=== PATIENT | female | born 1970 | race Hispanic/Latino ===

== ENCOUNTER 2017-12-18 06:49 | Emergency (ER) | payer OTHER ==
[2017-12-18 07:35] LABS: BASOPHILS % (AUTO) 1.3 % (0.0-5.0); EOSINOPHILS % (AUTO) 4.3 % (0.0-8.0); HEMATOCRIT 39.3 % (36-48); MEAN CORPUSCULAR HEMOGLOBIN 28.7 pg (27.0-33.0); MEAN CORPUSCULAR HGB CONC 33.1 g/dL (32.0-36.0); MEAN CORPUSCULAR VOLUME 86.6 fL (79-99); NEUTROPHILS % (AUTO) 65.4 % (40.0-77.0); PLATELET COUNT (AUTO) 247 K/uL (130-400); RED BLOOD CELL COUNT(AUTO) 4.53 MIL/uL (4.00-5.50); RED CELL DISTRIBUTION WIDTH 14.9 % (11.0-15.5); WHITE BLOOD COUNT (AUTO) 9.3 K/uL (4.8-10.8)
[2017-12-18 07:49] LABS: CARBON DIOXIDE 23 mmol/L (21-32); CHLORIDE 107 mmol/L (101-111); CREATININE 2.3 mg/dL (0.5-1.5); GLOMERULAR FILTR. RATE CALC 24 mL/min (>60); GLUCOSE,RANDOM 153 mg/dL (70-105); POTASSIUM 4.5 mmol/L (3.5-5.1); SODIUM SERUM 138 mmol/L (136-145); UREA NITROGEN, BLOOD 29 mg/dL (7-18)
[2017-12-18 07:56] LABS: INR 5.35 (0.85-1.15); PROTHROMBIN TIME 54.4 SEC (9.6-11.6)
[2017-12-18 08:04] LABS: ALANINE AMINOTRANSFERASE 15 U/L (12-78); ALBUMIN 2.7 g/dL (3.5-5.0); ASPARTATE AMINOTRANSFERASE 1 U/L (10-37); BILIRUBIN,TOTAL 0.3 mg/dL (0.2-1.0); CREATINE KINASE MB < 0.5 ng/mL (0.5-3.6); CREATINE KINASE, TOTAL 61 U/L (21-232); TOTAL PROTEIN, SERUM 6.3 g/dL (6.0-8.3)
[2017-12-18] MEDS ORDERED: PHYTONADIONE 10 MG/1 ML AMP ONE (08:04)
== END 2017-12-18 10:28 | disposition home or self-care (01) ==
LOC: EDH 06:49
DX: K08.89 Other specified disorders of teeth and supporting structures (principal); R79.1 Abnormal coagulation profile; R42 Dizziness and giddiness; E11.9 Type 2 diabetes mellitus without complications; I10 Essential (primary) hypertension; Z90.710 Acquired absence of both cervix and uterus; Z86.718 Personal history of other venous thrombosis and embolism; Z79.01 Long term (current) use of anticoagulants
CPT/HCPCS: 36415; 80053; 82550; 82553; 84484; 85025; 85610; 85730; 93005; 96372; 99285; J3430

== ENCOUNTER → 2019-11-28 | Outpatient (CLI) | payer OTHER | END | disposition home or self-care (01) | LOC: RAH 11:16 | DX: Z12.31 Encounter for screening mammogram for malignant neoplasm of breast (principal); N63.20 Unspecified lump in the left breast, unspecified quadrant | CPT/HCPCS: 77067 ==

== ENCOUNTER → 2019-12-15 | Outpatient (CLI) | payer OTHER | END | disposition home or self-care (01) | LOC: RAH 14:45 | DX: N63.20 Unspecified lump in the left breast, unspecified quadrant (principal); R92.8 Other abnormal and inconclusive findings on diagnostic imaging of breast | CPT/HCPCS: 76641; 77065 ==

== ENCOUNTER 2021-08-18 01:03 | Emergency (ER) | payer OTHER ==
[~2021-08-18] VITALS: Ht 157.5 cm; Wt 98.4 kg
[2021-08-18] MEDS ORDERED: LIDOCAINE HCL 1% 10 ML VIAL ONE (01:41)
[2021-08-18] MEDS ORDERED: CLINDAMYCIN 150 MG CAP PO ONE (02:30)
[2021-08-18] MEDS ORDERED: LIDOCAINE HCL 1% 20 ML VIAL INJ ONE (02:30)
[2021-08-18] MEDS ORDERED: HYDROCODONE/ACETAMINOPHEN 5/325 MG TAB PO ONE (02:30)
[2021-08-18] MEDS ORDERED: CLIN-141 PO (02:58)
[2021-08-18 03:40] VITALS: BP 112/72
== END 2021-08-18 03:46 | disposition home or self-care (01) ==
LOC: EDH 01:03
DX: L02.211 Cutaneous abscess of abdominal wall (principal); E11.9 Type 2 diabetes mellitus without complications; I10 Essential (primary) hypertension; Z86.718 Personal history of other venous thrombosis and embolism; Z79.899 Other long term (current) drug therapy
CPT/HCPCS: 10060; 99283; J3490

== ENCOUNTER 2022-05-19 15:55 | Emergency (ER) | payer OTHER ==
[~2022-05-19] VITALS: Ht 160 cm; Wt 117.9 kg
[~2022-05-19 15:55] MED LIST: CLIN-141 PO
[2022-05-19 16:22] LABS: APPEARANCE,URINE CLEAR (CLEAR); BILIRUBIN,URINE NEGATIVE (NEGATIVE); COLOR,URINE YELLOW (YELLOW); GLUCOSE, URINE (UA) 500 mg/dL (NEGATIVE); KETONES,URINE NEGATIVE (NEGATIVE); LEUKOCYTE ESTERASE ,URINE NEGATIVE (NEGATIVE); NITRATE,URINE NEGATIVE (NEGATIVE); OCCULT BLOOD,URINE TRACE-INTACT (NEGATIVE); PH,URINE 5.5 (5.0-8.0); PROTEIN,URINE NEGATIVE (NEGATIVE); UROBILINOGEN,URINE 0.2 mg/dL (0.2-1.0)
[2022-05-19] MEDS ORDERED: IBUPROFEN 800 MG TAB PO ONE (16:30)
[2022-05-19] MEDS ORDERED: ACETAMINOPHEN 500 MG TABLET PO ONE (16:30)
[2022-05-19] MEDS ORDERED: CLINDAMYCIN IVPB 600MG/50ML 50 ML IV SCH (16:30)
[2022-05-19 16:33] LABS: BACTERIA,URINE Few /HPF (None Seen); RBC,URINE 0-1 /HPF (0-1); SQUAMOUS EPITHELIAL CELL,UR Few /HPF (0-2); WBC,URINE 0-1 /HPF (0-1)
[2022-05-19 16:41] LABS: BASOPHILS % (AUTO) 0.5 % (0.0-5.0); EOSINOPHILS % (AUTO) 2.9 % (0.0-8.0); HEMATOCRIT 28.6 % (36-48); LYMPHOCYTES % (AUTO) 13.5 % (21.0-51.0); MEAN CORPUSCULAR HEMOGLOBIN 28.7 pg (27.0-33.0); MEAN CORPUSCULAR HGB CONC 32.2 g/dL (32.0-36.0); MEAN CORPUSCULAR VOLUME 89.1 fL (79-99); MONOCYTES % (AUTO) 5.5 % (3.0-13.0); PLATELET COUNT (AUTO) 284 K/uL (130-400); RED BLOOD CELL COUNT(AUTO) 3.21 MIL/uL (4.00-5.50); RED CELL DISTRIBUTION WIDTH 14.1 % (11.0-15.5); WHITE BLOOD COUNT (AUTO) 10.2 K/uL (4.8-10.8)
[2022-05-19 16:59] LABS: POTASSIUM 3.6 mmol/L (3.5-5.1)
[2022-05-19 17:04] LABS: ALBUMIN 3.1 g/dL (3.5-5.0); TOTAL PROTEIN, SERUM 6.7 g/dL (6.0-8.3)
[2022-05-19] MEDS ORDERED: CLIN-141 PO (17:54)
[2022-05-19] MEDS ORDERED: MUPI22O TP (17:54)
[2022-05-19 18:30] VITALS: BP 128/70
== END 2022-05-19 18:32 | disposition home or self-care (01) ==
LOC: EDH 15:55
DX: A49.01 Methicillin susceptible Staphylococcus aureus infection, unspecified site (principal); E11.9 Type 2 diabetes mellitus without complications; N28.9 Disorder of kidney and ureter, unspecified; E66.01 Morbid (severe) obesity due to excess calories; Z68.42 Body mass index [BMI] 45.0-49.9, adult; E78.00 Pure hypercholesterolemia, unspecified; I10 Essential (primary) hypertension; Z98.890 Other specified postprocedural states; Z90.49 Acquired absence of other specified parts of digestive tract
CPT/HCPCS: 99284; 96365; 80053; 85025; 87040 ×2; 82948; 83605; 86140; 81001; 36415; J3490

== ENCOUNTER 2023-03-03 08:11 | Inpatient (IN) | payer OTHER ==
[~2023-03-03] VITALS: Ht 160 cm; Wt 123.3 kg
[~2023-03-03 08:11] MED LIST changes: +MUPI22O TP
[2023-03-03 08:47] LABS: HEMATOCRIT 29.3 % (36-48); MEAN CORPUSCULAR HEMOGLOBIN 28.5 pg (27.0-33.0); MEAN CORPUSCULAR VOLUME 94.8 fL (79-99); PLATELET COUNT (AUTO) 327 K/uL (130-400); RED BLOOD CELL COUNT(AUTO) 3.09 MIL/uL (4.00-5.50); RED CELL DISTRIBUTION WIDTH 14.7 % (11.0-15.5); WHITE BLOOD COUNT (AUTO) 9.1 K/uL (4.8-10.8)
[2023-03-03 09:01] LABS: CREATININE 3.7 mg/dL (0.5-1.5); CRP QUANTITATIVE 60.8 mg/L (0.00-9.0); POTASSIUM 4.2 mmol/L (3.5-5.1)
[2023-03-03 09:09] LABS: INR 3.26 (0.85-1.15); PROTHROMBIN TIME 33.2 SEC (9.6-11.6)
[2023-03-03 09:11] LABS: PARTIAL THROMBOPLASTIN TIME 57.2 SEC (26.3-35.5)
[2023-03-03 09:37] LABS: LYMPHOCYTES % (MANUAL) 17 % (22-44); MAN.DIFF COMMENT-IMPRESSION MANUAL DIFFERENTIAL; MONOCYTES % (MANUAL) 8 % (2-9); PLATELET MORPHOLOGY COMMENT ADEQUATE; SEGMENTED NEUTROPHILS % 75 % (40-70)
[2023-03-03] MEDS ORDERED: POTASSIUM CHLORIDE 20MEQ/100ML 100 ML IV PRN (13:00)
[2023-03-03] MEDS ORDERED: GLUCAGON 1MG KIT 1 MG ML IM PRN (13:00)
[2023-03-03] MEDS ORDERED: ONDANSETRON 4MG INJ IVP PRN (13:00)
[2023-03-03] MEDS ORDERED: CEFEPIME HCL 2 GM VIAL IVPB SCH (13:00)
[2023-03-03] MEDS ORDERED: MORPHINE 2 MG SYG IVP PRN (13:00)
[2023-03-03] MEDS ORDERED: MORPHINE 4 MG SYG IVP PRN (13:00)
[2023-03-03] MEDS ORDERED: DEXTROSE 50%-WATER 50 ML DISP.SYRIN IV PRN (13:00)
[2023-03-03] MEDS ORDERED: MAGNESIUM 2GM PREMIX 50ML 50 ML IV PRN (13:00)
[2023-03-03] MEDS ORDERED: POTASSIUM CHLORIDE 10% ELIXIR 20 MEQ/15 ML UDCUP PO PRN (13:00)
[2023-03-03] MEDS: CEFEPIME HCL 1 GM VIAL IVPB SCH (13:22)
[2023-03-03 15:47] LABS: HEMOGLOBIN A1C 6.2 % (4.0-6.0)
[2023-03-03 16:00] VITALS: BP 125/83
[2023-03-03 16:11] LABS: % IRON SATURATION 6.6 % (22-44)
[2023-03-03 16:21] LABS: RETICULOCYTE % (AUTO) 2.07 % (0.42-2.23)
[2023-03-03] MEDS: INSULIN HUMULIN R 100 UNIT/ML 3ML SQ SCH ×2 (16:30→20:17)
[2023-03-03] MEDS ORDERED: METO100T14 PO (18:23)
[2023-03-03] MEDS ORDERED: GLIP5TAB11 PO (18:23)
[2023-03-03] MEDS ORDERED: FURO40TA5 PO (18:23)
[2023-03-03] MEDS ORDERED: WARF3TAB59 PO (18:23)
[2023-03-03] MEDS ORDERED: SODI650T PO (18:23)
[2023-03-03] MEDS ORDERED: ACET-66 PO (18:23)
[2023-03-03] MEDS ORDERED: FLUO20CA36 PO (18:23)
[2023-03-03] MEDS ORDERED: FENO145T26 PO (18:23)
[2023-03-03] MEDS ORDERED: LEVO250T75 PO (18:23)
[2023-03-03] MEDS ORDERED: VITAD50000 PO (18:23)
[2023-03-03 19:56] VITALS: BP 130/61
[2023-03-03] MEDS: ACETAMINOPHEN 325 MG TAB PO PRN (20:11)
[2023-03-03 23:08] VITALS: BP 126/63
[2023-03-04] MEDS: ACETAMINOPHEN 325 MG TAB PO PRN (01:02)
[2023-03-04 04:05] VITALS: BP 113/53
[2023-03-04 05:55] LABS: BASOPHILS % (AUTO) 0.6 % (0.0-5.0); EOSINOPHILS % (AUTO) 5.4 % (0.0-8.0); HEMATOCRIT 27.1 % (36-48); LYMPHOCYTES % (AUTO) 32.5 % (21.0-51.0); MEAN CORPUSCULAR HEMOGLOBIN 28.6 pg (27.0-33.0); MEAN CORPUSCULAR HGB CONC 30.6 g/dL (32.0-36.0); MEAN CORPUSCULAR VOLUME 93.4 fL (79-99); MONOCYTES % (AUTO) 6.7 % (3.0-13.0); NEUTROPHILS % (AUTO) 53.5 % (40.0-77.0); PLATELET COUNT (AUTO) 338 K/uL (130-400); RED CELL DISTRIBUTION WIDTH 14.6 % (11.0-15.5)
[2023-03-04 06:11] LABS: PARTIAL THROMBOPLASTIN TIME 67.8 SEC (26.3-35.5)
[2023-03-04 06:14] LABS: ALBUMIN 2.8 g/dL (3.5-5.0); CREATININE 3.9 mg/dL (0.5-1.5); POTASSIUM 3.6 mmol/L (3.5-5.1); TOTAL PROTEIN, SERUM 6.3 g/dL (6.0-8.3)
[2023-03-04] MEDS: INSULIN HUMULIN R 100 UNIT/ML 3ML SQ SCH ×4 (06:27→20:42)
[2023-03-04 07:23] LABS: INR 3.66 (0.85-1.15); PROTHROMBIN TIME 37.1 SEC (9.6-11.6)
[2023-03-04 07:30] VITALS: BP 133/56
[2023-03-04] MEDS: KCL 20 MEQ ERTAB PO PRN ×2 (10:04→13:52)
[2023-03-04 11:30] VITALS: BP 133/56
[2023-03-04] MEDS: CEFEPIME HCL 1 GM VIAL IVPB SCH (13:03)
[2023-03-04] MEDS: SODIUM BICARBONATE 650 MG TAB PO SCH ×2 (13:52→19:36)
[2023-03-04 15:30] VITALS: BP 130/69
[2023-03-04] MEDS: LINEZOLID 600 MG/ISO-OSM 300 ML IV SCH (17:59)
[2023-03-04] MEDS ORDERED: PHYTONADIONE 10 MG/1 ML AMP SQ SCH (19:00)
[2023-03-04 20:00] VITALS: BP 155/72
[2023-03-05] VITALS: BP 121/61
[2023-03-05] MEDS: LINEZOLID 600 MG/ISO-OSM 300 ML IV SCH ×2 (02:10→15:21)
[2023-03-05 04:00] VITALS: BP 123/58
[2023-03-05] MEDS: INSULIN HUMULIN R 100 UNIT/ML 3ML SQ SCH ×4 (04:54→20:24)
[2023-03-05 05:54] LABS: HEMATOCRIT 26.5 % (36-48); MEAN CORPUSCULAR HEMOGLOBIN 28.5 pg (27.0-33.0); MEAN CORPUSCULAR HGB CONC 30.6 g/dL (32.0-36.0); MEAN CORPUSCULAR VOLUME 93.3 fL (79-99); RED BLOOD CELL COUNT(AUTO) 2.84 MIL/uL (4.00-5.50); RED CELL DISTRIBUTION WIDTH 14.1 % (11.0-15.5); WHITE BLOOD COUNT (AUTO) 6.9 K/uL (4.8-10.8)
[2023-03-05 06:10] LABS: INR 2.77 (0.85-1.15); PROTHROMBIN TIME 28.5 SEC (9.6-11.6)
[2023-03-05 06:12] LABS: PARTIAL THROMBOPLASTIN TIME 58.8 SEC (26.3-35.5)
[2023-03-05 06:28] LABS: ALBUMIN 2.6 g/dL (3.5-5.0); CREATININE 3.8 mg/dL (0.5-1.5); MAGNESIUM 2.1 mg/dL (1.80-2.40); POTASSIUM 3.9 mmol/L (3.5-5.1); TOTAL PROTEIN, SERUM 6.1 g/dL (6.0-8.3)
[2023-03-05 07:30] VITALS: BP 133/65
[2023-03-05] MEDS: FLUOXETINE HCL 20 MG CAPSULE PO SCH (08:16)
[2023-03-05] MEDS: FENOFIBRATE NANOCRYSTALLIZED 145 MG TAB PO SCH (08:16)
[2023-03-05] MEDS: FUROSEMIDE 40 MG TABLET PO SCH (08:16)
[2023-03-05] MEDS: METOPROLOL TARTRATE 50 MG TAB PO SCH (08:16)
[2023-03-05] MEDS: SODIUM BICARBONATE 650 MG TAB PO SCH ×3 (08:16→20:23)
[2023-03-05] MEDS: PHYTONADIONE 10 MG/1 ML AMP SQ SCH (08:17)
[2023-03-05] MEDS: CEFEPIME HCL 1 GM VIAL IVPB SCH (15:21)
[2023-03-05 15:30] VITALS: BP 126/60
[2023-03-05 20:00] VITALS: BP 143/87
[2023-03-06] VITALS (27 sets, daily range): BP systolic 103–139; BP diastolic 53–78
[2023-03-06] MEDS: LINEZOLID 600 MG/ISO-OSM 300 ML IV SCH ×2 (02:54→15:24)
[2023-03-06] MEDS: INSULIN HUMULIN R 100 UNIT/ML 3ML SQ SCH ×4 (05:07→20:19)
[2023-03-06 05:53] LABS: HEMATOCRIT 27.5 % (36-48); MEAN CORPUSCULAR HGB CONC 30.5 g/dL (32.0-36.0); MEAN CORPUSCULAR VOLUME 91.7 fL (79-99); RED CELL DISTRIBUTION WIDTH 13.9 % (11.0-15.5); WHITE BLOOD COUNT (AUTO) 7.2 K/uL (4.8-10.8)
[2023-03-06 06:04] LABS: INR 1.57 (0.85-1.15); PROTHROMBIN TIME 16.7 SEC (9.6-11.6)
[2023-03-06 06:05] LABS: ALBUMIN 2.9 g/dL (3.5-5.0); CREATININE 3.7 mg/dL (0.5-1.5); MAGNESIUM 1.8 mg/dL (1.80-2.40); POTASSIUM 3.5 mmol/L (3.5-5.1); TOTAL PROTEIN, SERUM 6.3 g/dL (6.0-8.3)
[2023-03-06 06:06] LABS: PARTIAL THROMBOPLASTIN TIME 40.1 SEC (26.3-35.5)
[2023-03-06] MEDS ORDERED: LIDOCAINE PF 100MG/5ML (2%) SYRINGE 5ML ONE (10:24)
[2023-03-06] MEDS ORDERED: DEXAMETHASONE SOD PHOSPHATE 4 MG/ML 1ML VIAL ONE (10:24)
[2023-03-06] MEDS ORDERED: MIDAZOLAM HCL 1 MG/ML 2ML VIAL ONE (10:24)
[2023-03-06] MEDS ORDERED: PROPOFOL 10 MG/ML 20ML VIAL IV ONE (10:25)
[2023-03-06] MEDS ORDERED: ONDANSETRON 4MG INJ ONE (10:25)
[2023-03-06] MEDS ORDERED: FENTANYL CITRATE PF 50 MCG/1 ML 2ML VIAL ONE (10:25)
[2023-03-06] MEDS ORDERED: LIDOCAINE 1%-EPI 1:100,000 20 ML VIAL IJ ONE ×2 (10:31→10:42)
[2023-03-06] MEDS ORDERED: BUPIVACAINE/PF 0.25% 30ML VIAL IJ ONE ×2 (10:31→10:44)
[2023-03-06] MEDS ORDERED: CEFAZOLIN SODIUM 2 GM VIAL IVPB ONE (10:59)
[2023-03-06] MEDS ORDERED: CEFAZOLIN SODIUM 1 GM VIAL ONE (11:07)
[2023-03-06] MEDS ORDERED: MEPERIDINE-PF 25 MG/ML SYG ONE ×2 (11:39→11:48)
[2023-03-06] MEDS: FENOFIBRATE NANOCRYSTALLIZED 145 MG TAB PO SCH (13:52)
[2023-03-06] MEDS: PHYTONADIONE 10 MG/1 ML AMP SQ SCH (13:52)
[2023-03-06] MEDS: FLUOXETINE HCL 20 MG CAPSULE PO SCH (13:52)
[2023-03-06] MEDS: CEFEPIME HCL 1 GM VIAL IVPB SCH (13:52)
[2023-03-06] MEDS: KCL 20 MEQ ERTAB PO PRN ×2 (13:53→20:48)
[2023-03-06] MEDS: FUROSEMIDE 40 MG TABLET PO SCH (13:53)
[2023-03-06] MEDS: SODIUM BICARBONATE 650 MG TAB PO SCH ×3 (13:53→20:12)
[2023-03-06] MEDS: METOPROLOL TARTRATE 50 MG TAB PO SCH (13:54)
[2023-03-07] MEDS: LINEZOLID 600 MG/ISO-OSM 300 ML IV SCH ×2 (02:45→14:41)
[2023-03-07 03:54] VITALS: BP 96/50
[2023-03-07 04:20] LABS: HEMATOCRIT 27.2 % (36-48); MEAN CORPUSCULAR HEMOGLOBIN 28.3 pg (27.0-33.0); MEAN CORPUSCULAR HGB CONC 31.3 g/dL (32.0-36.0); MEAN CORPUSCULAR VOLUME 90.7 fL (79-99); RED CELL DISTRIBUTION WIDTH 13.7 % (11.0-15.5); WHITE BLOOD COUNT (AUTO) 9.3 K/uL (4.8-10.8)
[2023-03-07 04:36] LABS: INR 1.21 (0.85-1.15)
[2023-03-07 04:37] LABS: PARTIAL THROMBOPLASTIN TIME 31.7 SEC (26.3-35.5)
[2023-03-07 04:41] LABS: BILIRUBIN,DIRECT 0.2 mg/dL (0.0-0.3); CREATININE 3.8 mg/dL (0.5-1.5); MAGNESIUM 2.2 mg/dL (1.80-2.40); POTASSIUM 4.2 mmol/L (3.5-5.1); TOTAL PROTEIN, SERUM 6.5 g/dL (6.0-8.3)
[2023-03-07] MEDS: INSULIN HUMULIN R 100 UNIT/ML 3ML SQ SCH ×4 (06:28→20:08)
[2023-03-07 07:30] VITALS: BP 113/61
[2023-03-07] MEDS: FLUOXETINE HCL 20 MG CAPSULE PO SCH (08:11)
[2023-03-07] MEDS: FENOFIBRATE NANOCRYSTALLIZED 145 MG TAB PO SCH (08:11)
[2023-03-07] MEDS: SODIUM BICARBONATE 650 MG TAB PO SCH ×3 (08:11→20:04)
[2023-03-07] MEDS: METOPROLOL TARTRATE 50 MG TAB PO SCH (08:11)
[2023-03-07] MEDS: PHYTONADIONE 10 MG/1 ML AMP SQ SCH (08:11)
[2023-03-07] MEDS: FUROSEMIDE 40 MG TABLET PO SCH (08:11)
[2023-03-07 11:30] VITALS: BP 118/57
[2023-03-07] MEDS: CEFEPIME HCL 1 GM VIAL IVPB SCH (12:49)
[2023-03-07] MEDS: OXYCODONE/ACETAMIN 5/325MG TAB PO PRN (12:49)
[2023-03-07 15:30] VITALS: BP 155/44
[2023-03-07 20:07] VITALS: BP 114/54
[2023-03-07 23:36] VITALS: BP 120/48
[2023-03-08] MEDS: LINEZOLID 600 MG/ISO-OSM 300 ML IV SCH ×2 (01:34→14:19)
[2023-03-08 03:38] VITALS: BP 119/54
[2023-03-08 05:34] LABS: BASOPHILS % (AUTO) 0.8 % (0.0-5.0); HEMATOCRIT 26.5 % (36-48); LYMPHOCYTES % (AUTO) 40.1 % (21.0-51.0); MEAN CORPUSCULAR HEMOGLOBIN 28.8 pg (27.0-33.0); MEAN CORPUSCULAR HGB CONC 31.3 g/dL (32.0-36.0); MONOCYTES % (AUTO) 7.4 % (3.0-13.0); NEUTROPHILS % (AUTO) 46.3 % (40.0-77.0); PLATELET COUNT (AUTO) 336 K/uL (130-400); RED BLOOD CELL COUNT(AUTO) 2.88 MIL/uL (4.00-5.50); RED CELL DISTRIBUTION WIDTH 13.9 % (11.0-15.5); WHITE BLOOD COUNT (AUTO) 7.8 K/uL (4.8-10.8)
[2023-03-08] MEDS: INSULIN HUMULIN R 100 UNIT/ML 3ML SQ SCH ×4 (05:48→19:45)
[2023-03-08 05:58] LABS: CREATININE 4.3 mg/dL (0.5-1.5); POTASSIUM 3.8 mmol/L (3.5-5.1)
[2023-03-08 06:17] LABS: INR 1.13 (0.85-1.15); PROTHROMBIN TIME 12.2 SEC (9.6-11.6)
[2023-03-08 06:18] LABS: PARTIAL THROMBOPLASTIN TIME 28.3 SEC (26.3-35.5)
[2023-03-08 08:00] VITALS: BP 105/52
[2023-03-08] MEDS: PHYTONADIONE 10 MG/1 ML AMP SQ SCH (08:04)
[2023-03-08] MEDS: METOPROLOL TARTRATE 50 MG TAB PO SCH (08:04)
[2023-03-08] MEDS: FENOFIBRATE NANOCRYSTALLIZED 145 MG TAB PO SCH (08:04)
[2023-03-08] MEDS: FUROSEMIDE 40 MG TABLET PO SCH (08:04)
[2023-03-08] MEDS: FLUOXETINE HCL 20 MG CAPSULE PO SCH (08:04)
[2023-03-08] MEDS: SODIUM BICARBONATE 650 MG TAB PO SCH ×3 (08:04→19:58)
[2023-03-08 12:00] VITALS: BP 114/66
[2023-03-08] MEDS: CEFEPIME HCL 1 GM VIAL IVPB SCH (13:13)
[2023-03-08] MEDS: OXYCODONE/ACETAMIN 5/325MG TAB PO PRN (14:20)
[2023-03-08 16:00] VITALS: BP 123/61
[2023-03-08] MEDS ORDERED: PHARMACY COMMUNICATION MISC SCH (17:30)
[2023-03-08 20:28] VITALS: BP 96/47
[2023-03-08 23:27] VITALS: BP 135/58
[2023-03-09] MEDS: LINEZOLID 600 MG/ISO-OSM 300 ML IV SCH ×2 (02:39→14:31)
[2023-03-09 03:27] VITALS: BP 107/61
[2023-03-09 05:14] LABS: BASOPHILS % (AUTO) 1.2 % (0.0-5.0); EOSINOPHILS % (AUTO) 4.6 % (0.0-8.0); HEMATOCRIT 26.3 % (36-48); LYMPHOCYTES % (AUTO) 38.2 % (21.0-51.0); MEAN CORPUSCULAR HEMOGLOBIN 28.6 pg (27.0-33.0); MEAN CORPUSCULAR HGB CONC 31.2 g/dL (32.0-36.0); MEAN CORPUSCULAR VOLUME 91.6 fL (79-99); MONOCYTES % (AUTO) 7.7 % (3.0-13.0); NEUTROPHILS % (AUTO) 46.8 % (40.0-77.0); PLATELET COUNT (AUTO) 336 K/uL (130-400); RED BLOOD CELL COUNT(AUTO) 2.87 MIL/uL (4.00-5.50); RED CELL DISTRIBUTION WIDTH 13.9 % (11.0-15.5); WHITE BLOOD COUNT (AUTO) 6.8 K/uL (4.8-10.8)
[2023-03-09 05:22] LABS: INR 1.07 (0.85-1.15); PROTHROMBIN TIME 11.6 SEC (9.6-11.6)
[2023-03-09 05:48] LABS: CREATININE 4.4 mg/dL (0.5-1.5); POTASSIUM 3.5 mmol/L (3.5-5.1)
[2023-03-09] MEDS: INSULIN HUMULIN R 100 UNIT/ML 3ML SQ SCH ×2 (05:51→10:56)
[2023-03-09] MEDS: KCL 20 MEQ ERTAB PO PRN (06:06)
[2023-03-09 08:00] VITALS: BP 123/51
[2023-03-09] MEDS: FLUOXETINE HCL 20 MG CAPSULE PO SCH (08:28)
[2023-03-09] MEDS: METOPROLOL TARTRATE 50 MG TAB PO SCH (08:28)
[2023-03-09] MEDS: FUROSEMIDE 40 MG TABLET PO SCH (08:28)
[2023-03-09] MEDS: SODIUM BICARBONATE 650 MG TAB PO SCH ×2 (08:28→13:36)
[2023-03-09] MEDS: PHYTONADIONE 10 MG/1 ML AMP SQ SCH (09:00)
[2023-03-09 11:47] VITALS: BP 122/63
[2023-03-09] MEDS: CEFEPIME HCL 1 GM VIAL IVPB SCH (13:35)
== END 2023-03-09 16:25 | disposition home or self-care (01) | DRG 603 ==
LOC: EDH 08:11 → EDHIP 08:58 → 3AH 16:15
PROVIDERS: ADMIT Hospitalist; ATTEND Hospitalist
PROC: 0J9M0ZZ Drainage of Left Upper Leg Subcutaneous Tissue and Fascia, Open Approach (ICD-10-PCS; principal; 2023-03-06 10:34)
DX: L03.116 Cellulitis of left lower limb (principal); N18.5 Chronic kidney disease, stage 5; I12.0 Hypertensive chronic kidney disease with stage 5 chronic kidney disease or end stage renal disease; D68.59 Other primary thrombophilia; Z20.822 Contact with and (suspected) exposure to COVID-19; Z68.42 Body mass index [BMI] 45.0-49.9, adult; N17.9 Acute kidney failure, unspecified; L02.415 Cutaneous abscess of right lower limb; E11.22 Type 2 diabetes mellitus with diabetic chronic kidney disease; D63.8 Anemia in other chronic diseases classified elsewhere; E66.01 Morbid (severe) obesity due to excess calories; E78.00 Pure hypercholesterolemia, unspecified; L02.416 Cutaneous abscess of left lower limb; Z79.01 Long term (current) use of anticoagulants; Z80.8 Family history of malignant neoplasm of other organs or systems; Z82.49 Family history of ischemic heart disease and other diseases of the circulatory system; Z83.3 Family history of diabetes mellitus; Z86.718 Personal history of other venous thrombosis and embolism; Z90.710 Acquired absence of both cervix and uterus
CPT/HCPCS: 36415; 73700; 80048; 80053; 80076; 82607; 82728; 82948; 83036; 83735; 84145; 85025; 85027; 85610; 85651; 85730; 86140; 87070; 87076; 87635; 93970; G0378; J0690; J0692; J1100; J1815; J2001; J2020; J2175; J2250; J2270; J2405; J2704; J3010; J3430; J3475; J3490

== ENCOUNTER → 2024-11-23 | Outpatient (CLI) | payer OTHER, MEDICARE ==
[~2024-11-23] MED LIST changes: +ACET-66 PO; -CLIN-141 PO; +FENO145T26 PO; +FLUO-418 PO; +FURO40TA5 PO; +METO100T14 PO; -MUPI22O TP; +SODI650T PO; +VITAD50000 PO
--- NOTE | 2024-11-24 10:48 | HMCIMG ---
MAMMO SCREENING BILATERAL HISTORY: Screening mammogram. COMPARISON: 07/03/2021 TECHNIQUE: Bilateral screening mammogram with CAD was performed with craniocaudal and mediolateral oblique projections. FINDINGS: There are scattered areas of fibroglandular density. There is no evidence of a dominant mass, or suspicious microcalcification. There is no evidence of nipple retraction or skin thickening. IMPRESSION: 1. Stable mammogram. Patient was entered into a reminder system with a target due date for their next mammogram. BI-RADS: CATEGORY 2: BENIGN FINDINGS Recommend monthly self breast exam as well as annual clinical examination. A negative x-ray should not delay biopsy if a dominant or clinically suspicious mass is present, since 8-10% of cancers are not identified by mammography. Dense breasts particularly, may obscure an underlying neoplasm. Some of these may be detected clinically and therefore, clinical examination is an essential part of breast evaluation.
== END | disposition home or self-care (01) ==
LOC: RAH 15:34
PROVIDERS: ATTEND Family Medicine
DX: Z12.31 Encounter for screening mammogram for malignant neoplasm of breast (principal); R92.323 Mammographic fibroglandular density, bilateral breasts
CPT/HCPCS: 77067

== ENCOUNTER 2025-09-28 05:36 | Day surgery (SDC) | payer OTHER, MEDICARE ==
[2025-09-26 11:59] LABS: IMMATURE GRANULOCYTE ABSOLUTE 0.03 K/uL (0-1); NUCLEATED RED BLOOD CELLS 0.0 % (0.0-0.19); PLATELET COUNT (AUTO) 244 K/uL (130-400); RED BLOOD CELL COUNT(AUTO) 3.83 MIL/uL (4.00-5.50); RED CELL DISTRIBUTION WIDTH 13.4 % (11.0-15.5); WHITE BLOOD COUNT (AUTO) 7.6 K/uL (4.8-10.8)
[2025-09-26 12:00] LABS: APPEARANCE,URINE CLEAR (CLEAR); GLUCOSE, URINE (UA) 500 mg/dL (NEGATIVE); LEUKOCYTE ESTERASE ,URINE NEGATIVE Leu/uL (NEGATIVE); NITRATE,URINE NEGATIVE (NEGATIVE); OCCULT BLOOD,URINE +- (TRACE) (NEGATIVE)
[2025-09-26 12:07] LABS: ADD UA MICROSCOPIC YES
[2025-09-26 12:07] LABS: CREATININE 4.1 mg/dL (0.5-1.0); GLOMERULAR FILTR. RATE CALC 12.0 mL/min (>90); GLUCOSE,RANDOM 126.0 mg/dL (70-105); SODIUM SERUM 145.0 mmol/L (136-145); UREA NITROGEN, BLOOD 30.0 mg/dL (7-18)
[2025-09-26 12:09] LABS: INR 1.08 (0.85-1.15)
[2025-09-26 12:18] VITALS: BP 114/71; PULSE 82; RESP 14; TEMP 98.4
[2025-09-26 12:20] LABS: SQUAMOUS EPITHELIAL CELL,UR FEW /HPF (0-2)
--- NOTE | 2025-09-26 12:33 | EKG ---
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
--- NOTE | 2025-09-27 01:41 | HMCIMG ---
EXAM: XR Chest, PA View. CLINICAL HISTORY: Pre-operative assessment. COMPARISON: None provided. FINDINGS: LUNGS: The lungs are clear. No consolidation. PLEURAL SPACES: No pleural effusion or pneumothorax. HEART: The heart size is normal. BONES: Bilateral acromioclavicular osteoarthritis. LINES AND TUBES: A left side internal jugular central venous line is seen with its tip within the SVC. IMPRESSION: 1. No acute cardiopulmonary process. 2. Left side internal jugular central venous line tip within the SVC. 3. Bilateral acromioclavicular osteoarthritis. /[place]
[~2025-09-28] VITALS: Ht 160 cm; Wt 91.4 kg
[2025-09-28] VITALS (7 sets, daily range): BP systolic 89–113; BP diastolic 43–84; PULSE 61–84; RESP 14–18; TEMP 97.4–97.9
[~2025-09-28 05:36] MED LIST changes: +ACET-3540 PO; -ACET-66 PO; +APIX5TAB PO; +ATOR20TA65 PO; +CALC0.253 PO; +DOCU-133 PO; -FENO145T26 PO; -FLUO-418 PO; +FOLI1 PO; -FURO40TA5 PO; -METO100T14 PO; +MOUNJARO SQ; +POTA-202 PO; +SEVE800T27 PO; -SODI650T PO; +TOPI-257 PO; -VITAD50000 PO
[2025-09-28] MEDS ORDERED: VERAPAMIL HCL 2.5 MG/ML VIAL ONE (07:12)
[2025-09-28] MEDS ORDERED: HEParin-NS 1,000 UNIT/500 ML 1,000 ML IV ONE (07:12)
[2025-09-28] MEDS ORDERED: LIDOCAINE HCL 400MG/20ML VIAL ONE (07:12)
[2025-09-28] MEDS ORDERED: NITROGLYCERIN 50MG VIAL ONE (07:12)
[2025-09-28] MEDS ORDERED: IOHEXOL 350 MG/ML 100ML INFUS..BTL IV ONE (07:13)
[2025-09-28] MEDS ORDERED: MIDAZOLAM HCL 1 MG/ML 2ML VIAL ONE ×2 (07:26→07:49)
[2025-09-28] MEDS ORDERED: DEXTROSE 50%-WATER 50 ML DISP.SYRIN IV PRN (08:30)
[2025-09-28] MEDS ORDERED: GLUCAGON 1MG KIT 1 MG ML IM PRN (08:30)
--- NOTE | 2025-09-28 10:35 | NUR ---
VASBAND REMOVED RIGHT RADIAL SITE ASYMPTOMATIC. RIGHT RADIAL DRESSED WITH STERILE 2X2 WRAPPED WITH TEGADERM/COBAND. BETTY VSS
--- NOTE | 2025-09-28 11:05 | NUR ---
BOTH PT AND MOTHER GIVEN VERBAL AND WRITTEN DISCHARGE INSTRUCTIONS. IV REMOVED SITE ASYMPTOMATIC. PT REFUSED WHEELCHAIR, SO I TOLD HER I WILL WALK WITH HER OUTSIDE, PT OK WITH THIS. MOTHER DRIVING.
--- NOTE | 2025-10-10 17:19 | PRN ---
PROCEDURE REPORT DATE OF PROCEDURE: Sep 28, 2025 MANAGER BRAND: [Julio C Patel MD ] PROCEDURE PERFORMED: Conscious sedation Ultrasound guided right radial artery access Ultrasound guided right brachial vein access Selective left coronary artery angiogram Selective right coronary artery angiogram Left heart catheterization TR band 13 [place] over right radial artery INDICATION: Abnormal CTA DESCRIPTION OF PROCEDURE: After informed consent was obtained, the patient was prepped and draped in the usual sterile fashion. A 6 [place] arterial sheath was inserted in the right radial artery using ultrasound guidance with first pass wall puncture. The arterial sheath was aspirated and flushed. A 6 [place] JL 3.5 was then advanced to the ascending aorta over an exchange length J-tip guidewire, was aspirated and flushed, and was used for selective coronary angiograms in multiple obliquities. A JR-4 was advanced in a similar fashion to the ascending aorta over the J-tipped guidewire and was used for selective right coronary angiograms in multiple oblique views with findings as outlined below. The JR-4 catheter advanced into the LV and pressures were obtained with a pull-back across the aortic valve. A TR band was placed over right radial artery. FLUOROSCOPY TIME: 2.3 min LEFT HEART HEMODYNAMICS: LVEDP 6 mm Hg and no gradient Ao CORONARY ANGIOGRAM: LEFT MAIN: Patent and 0% stenosis. Gives rise to LCx and LAD. LEFT ANTERIOR DESCENDING: Large vessel giving rise to two Diagonal branches. There is luminal irregularities DANIELA 3 flow. Diag widely patent LEFT CIRCUMFLEX: Large and gives rise to two OM branches. 0% stenosis. RIGHT CORONARY ARTERY: Large, dominant vessel giving rise to PDA and PL branches. 0% stenosis. HEMOSTASIS: TR band 12 [place] over right radial artery INTERVENTIONS: None. COMPLICATIONS: None FINDINGS: Normal coronary anatomy and patent coronaries. ESTIMATED BLOOD LOSS: 5 cc RECOMMENDATIONS/INSTRUCTIONS: Aggressive risk factor modification. CONTRAST DELIVERED TO PATIENT (mL): 50cc MD MARCEL Corral JAMES R MD Oct 10, 2025 17:19
[2025-10-10] MEDS ORDERED: DEXTROSE 50%-WATER 50 ML DISP.SYRIN IV PRN (19:00)
[2025-10-10] MEDS ORDERED: GLUCAGON 1MG KIT 1 MG ML IM PRN (19:00)
== END 2025-09-28 11:15 | disposition home or self-care (01) ==
LOC: DAH 05:36
PROVIDERS: ATTEND Student in an Organized Health Care Education/Training Program
DX: R07.89 Other chest pain (principal); R93.1 Abnormal findings on diagnostic imaging of heart and coronary circulation; I51.7 Cardiomegaly; E78.5 Hyperlipidemia, unspecified; I12.0 Hypertensive chronic kidney disease with stage 5 chronic kidney disease or end stage renal disease; E11.22 Type 2 diabetes mellitus with diabetic chronic kidney disease; N18.6 End stage renal disease; Z99.2 Dependence on renal dialysis; Z94.0 Kidney transplant status; Z90.710 Acquired absence of both cervix and uterus; Z90.49 Acquired absence of other specified parts of digestive tract; Z79.01 Long term (current) use of anticoagulants; Z79.899 Other long term (current) drug therapy
CPT/HCPCS: 80048; 83880; 85025; 85610; 85730; 81001; 36415; 71045; 93005; 93458; 99156; 99157; 82948; C1769; C1894; A4649; J3010; J3490 ×3; J1644 ×2; J2250 ×2; Q9967; A4215; A4221; A4663; A4216; A4606; Q9965; A4223 ×2